=== PATIENT | female | born 1955 | race Caucasian/White ===

== ENCOUNTER 2024-07-18 09:08 | Inpatient (IN) | payer BC, MEDICARE, SELFPAY ==
[2024-06-28 13:44] LABS: Hematocrit 37.5 % (37.0-47.0); Hemoglobin 12.2 g/dL (12.0-16.0); Mean Corp Hgb Conc. 32.5 g/dL (33.0-37.0); Mean Corpuscular Hgb 28.4 pg (27.0-31.0); Mean Corpuscular Volume 87.2 fL (81.0-99.0); Mean Platelet Volume 9.6 fL (7.4-10.4); Platelet Count 251 10^3/uL (130-400); Red Cell Dist. Width 15.5 % (11.5-14.5); White Blood Cell Count 9.4 10^3/uL (4.8-10.8)
[2024-06-28 14:03] VITALS: BMI 39.9
[2024-06-28 14:08] LABS: Glycohemoglobin (HgbA1c) 6.9 % (4.0-5.6)
[2024-06-28 14:09] LABS: ALT (SGPT) 30 U/L (0-35); AST (SGOT) 39 U/L (14-36); Albumin 4.4 g/dl (3.5-5.0); Alkaline Phosphatase 104 U/L (38-126); Blood Urea Nitrogen 18 mg/dl (7-17); Calcium 9.9 mg/dl (8.4-10.2); Carbon Dioxide 21 mmol/L (22-30); Chloride 103 mmol/L (98-107); Estimated Creatinine Clearance 76 ml/min; Glucose 160 mg/dl (70-99); Potassium 4.5 mmol/L (3.5-5.1); Sodium 135 mmol/L (135-145); Total Bilirubin 0.5 mg/dl (0.2-1.3); Total Protein 7.4 g/dl (6.3-8.2); eGFR > 60.00
[2024-06-28 18:14] VITALS: BMI 39.9
[2024-07-18] VITALS (11 sets, daily range): BP systolic 101–157; BP diastolic 45–85
[2024-07-18 09:52] LABS: Glucose - Point of Care 166 mg/dl (70-99)
[2024-07-18] MEDS: NORMOSOL-R/PLASMALYTE-A 1000 IV ×2 (09:53→15:23)
[2024-07-18] MEDS: CELEBREX 200 MG PO (09:53)
[2024-07-18] MEDS: TYLENOL 1000 MG PO (09:53)
--- NOTE | 2024-07-18 10:29 | W.PN.UPDATE ---
Update Note
Progress Note Update
R TKA 07/18/24-d/c w/ VN PT
DVT ppx ASA
NIDDM
Obesity
-+ Novolog and Lantus coverage while inpatient due to hyperglycemic effect of surgery-resume Metformin
Cefadroxil ppx infection prevention
PVCs
HTN
-tele-continue BB
[id number] spirometry
--- NOTE | 2024-07-18 10:39 | W.DS.TRANS ---
DC Summary - [facility]
-
Discharge Instructions:
Discharge Diagnosis/Procedures R TKA 07/18/24-
Diet Diabetic, Carb Controlled
Activity With Walker
Driving Restrictions No driving
Bathing Restrictions OK to Shower
Other Services PT,VN
Instructions:
Stand-Alone Forms: Total Hip/Knee Replacement D/C
Changes to Home Medications: Yes
Discharge Medications:
DC Medications w/original date entered in [facility]
ergocalciferol (vitamin D2) 1,250 mcg (50,000 unit) capsule (Vitamin D2) 1,250 mcg PO SUTH 06/25/24
famotidine 40 mg tablet 40 mg PO QPM 06/25/24
meclizine 25 mg tablet 25 mg PO BID 06/25/24
metformin 500 mg tablet 500 mg PO 1800 06/25/24
metoprolol succinate 25 mg tablet,extended release 24 hr 25 mg PO DAILY 06/25/24
nortriptyline 10 mg capsule 20 mg PO QPM 06/25/24
nystatin 100,000 unit/mL oral suspension 10 ml PO TID 06/25/24
pravastatin 20 mg tablet 20 mg PO DAILY 06/25/24
valsartan 160 mg tablet 160 mg PO QPM 06/25/24
mupirocin 2 % topical ointment 1 applic intranasal BID #1 tube 06/28/24
Saccharomyces boulardii 250 mg capsule (Florastor) 250 mg PO BID #1 cap 07/18/24
acetaminophen 500 mg tablet 1,000 mg (2 x 500 mg) PO QID #0 tabs 07/18/24
aspirin 325 mg tablet 325 mg PO DAILY blood clot prevention #1 tab 07/18/24
cefadroxil 500 mg capsule 500 mg PO BID infection prevention #14 caps 07/18/24
docusate sodium 100 mg capsule (Colace) 100 mg PO BID stool softner #1 cap 07/18/24
gabapentin 300 mg capsule 300 mg PO HS sleep/pain #10 caps 07/18/24
magnesium hydroxide 400 mg/5 mL oral suspension (Milk of Magnesia) 30 ml PO HS PRN Constipation #1 mL 07/18/24
meloxicam 15 mg tablet 15 mg PO DAILY anti-inflammatory #14 tabs 07/18/24
ondansetron 4 mg disintegrating tablet 4 mg PO Q6H PRN n/v #20 tabs 07/18/24
oxycodone 5 mg tablet 5 mg PO Q6H PRN 1 tab moderate pain, 2 tabs severe pain #30 tabs 07/18/24
sennosides 8.6 mg tablet (Senokot) 17.2 mg (2 x 8.6 mg) PO BID laxative #2 tabs 07/18/24
Home Medication Changes
mupirocin 2 % topical ointment 1 applic intranasal BID #1 tube 06/28/24
Saccharomyces boulardii 250 mg capsule (Florastor) 250 mg PO BID #1 cap 07/18/24
acetaminophen 500 mg tablet 1,000 mg (2 x 500 mg) PO QID #0 tabs 07/18/24
aspirin 325 mg tablet 325 mg PO DAILY blood clot prevention #1 tab 07/18/24
cefadroxil 500 mg capsule 500 mg PO BID infection prevention #14 caps 07/18/24
docusate sodium 100 mg capsule (Colace) 100 mg PO BID stool softner #1 cap 07/18/24
gabapentin 300 mg capsule 300 mg PO HS sleep/pain #10 caps 07/18/24
magnesium hydroxide 400 mg/5 mL oral suspension (Milk of Magnesia) 30 ml PO HS PRN Constipation #1 mL 07/18/24
meloxicam 15 mg tablet 15 mg PO DAILY anti-inflammatory #14 tabs 07/18/24
ondansetron 4 mg disintegrating tablet 4 mg PO Q6H PRN n/v #20 tabs 07/18/24
oxycodone 5 mg tablet 5 mg PO Q6H PRN 1 tab moderate pain, 2 tabs severe pain #30 tabs 07/18/24
sennosides 8.6 mg tablet (Senokot) 17.2 mg (2 x 8.6 mg) PO BID laxative #2 tabs 07/18/24
Pending Results: No
[2024-07-18 11:32] LABS: Glucose - Point of Care 158 mg/dl (70-99)
[2024-07-18 14:24] LABS: Glucose - Point of Care 160 mg/dl (70-99)
[2024-07-18] MEDS: ROXICODONE 5 MG PO ×2 (15:09→23:08)
[2024-07-18] MEDS: NOVOLOG FLEXPEN-MODERATE RESISTANCE SC (15:44)
[2024-07-18] MEDS: TYLENOL PO (15:45)
--- NOTE | 2024-07-18 16:29 | PTCARENOTE ---
Received patient from PACU around 1520 via bed in stable condition. Decreased sensation to the right leg. Denies pain. Dressing to Right knee CDI. DTV. Patient oriented to room. Call plasencia in reach.
--- NOTE | 2024-07-18 17:19 | W.PN.UPDATE ---
Update Note
Progress Note Update
Patient doing well s/p R TKR. Has not been OOB as spinal wearing off. Comfortable. VSS. Pulm: nonlabored. CV: regular. RLE: Dressing CDI. Calf soft. Able to fully extend. Post op xray as expected. ASA for DVT prophylaxis. Consider
dexamethasone postop. Plan for discharge home tomorrow with outpatient PT on Monday.
[2024-07-18 17:21] LABS: Glucose - Point of Care 174 mg/dl (70-99)
[2024-07-18] MEDS: PRAVACHOL 20 MG PO (17:48)
[2024-07-18] MEDS: LANTUS 0.05 UNITS SC (17:48)
[2024-07-18] MEDS: TYLENOL 650 MG PO ×3 (17:49→23:08)
[2024-07-18] MEDS: PAMELOR 20 MG PO (17:50)
[2024-07-18] MEDS: ASPIRIN 325 MG PO (17:51)
[2024-07-18] MEDS: GLUCOPHAGE 500 MG PO (17:51)
[2024-07-18] MEDS: NOVOLOG FLEXPEN-MODERATE RESISTANCE 1 UNITS SC (17:52)
[2024-07-18] MEDS: DIOVAN 80 MG PO (17:53)
[2024-07-18] MEDS: ANTIVERT 25 MG PO (19:45)
[2024-07-18] MEDS: ULTRAM 25 MG PO (19:45)
[2024-07-18] MEDS: NEURONTIN 300 MG PO (19:45)
[2024-07-18] MEDS: BACTROBAN 2% OINTMENT 1 APPLIC NASAL (19:45)
[2024-07-18] MEDS: ANCEF 5 IV (19:45)
[2024-07-18] MEDS: SENOKOT 17.2 MG PO (19:45)
[2024-07-18] MEDS: COLACE 100 MG PO (19:45)
[2024-07-18] MEDS: TORADOL 15 MG IV (19:45)
[2024-07-18 21:55] LABS: Glucose - Point of Care 242 mg/dl (70-99)
[2024-07-19] MEDS: ANCEF 5 IV (03:15)
[2024-07-19] MEDS: TYLENOL 650 MG PO ×2 (03:17→12:00)
[2024-07-19 03:20] VITALS: BP 149/69
[2024-07-19] MEDS: ROXICODONE 5 MG PO (03:35)
[2024-07-19 07:18] VITALS: BP 154/67
--- NOTE | 2024-07-19 07:20 | W.PN.ORTHO ---
Today's Communication / Plan
-
discharge home today if stable
Assessment
.
Distal Motor Intact: Yes
Dressing:
Clean, dry and intact.
Assessment:
Doing well s/p R TKR
Plan
.
Surgery / Date: 07/18/2024
DVT Prophylaxis: Aspirin
Activity:
Out of bed.
PT/OT
Discharge Plan: Home w/ VN
Discharge Information:
Plan for discharge home today with Home PT and Visiting Nurse
Subjective
.
.:
Patient resting comfortably. OOB last night. Doing well S/P R TKR
Vital Signs and Labs
.
Vital Signs and Labs:
Lab Results
06/28/24 13:28
06/28/24 13:28
Temp Pulse Resp BP Pulse Ox
97.8 F 72 18 149/69 100
07/19/24 03:20 07/19/24 03:20 07/19/24 03:20 07/19/24 03:20 07/19/24 03:20
Non-invasive Hgb result: 14.8
Physical Exam
-
RLE: Dressing CDI. Calf soft. Able to fully extend. NVI distally.
Pulm: nonlabored
CV: regular
[2024-07-19 07:37] LABS: Glucose - Point of Care 177 mg/dl (70-99)
[2024-07-19] MEDS: NOVOLOG FLEXPEN-MODERATE RESISTANCE 1 UNITS SC (08:40)
[2024-07-19] MEDS: LANTUS 0.05 UNITS SC (08:40)
[2024-07-19] MEDS: TOPROL XL 25 MG PO (08:40)
[2024-07-19] MEDS: MOBIC 15 MG PO (08:41)
[2024-07-19] MEDS: PRAVACHOL 20 MG PO (08:41)
[2024-07-19] MEDS: NEURONTIN 300 MG PO (08:42)
[2024-07-19] MEDS: ASPIRIN 325 MG PO (08:42)
[2024-07-19] MEDS: ANTIVERT 25 MG PO (08:43)
[2024-07-19] MEDS: TORADOL 15 MG IV (08:43)
[2024-07-19] MEDS: ULTRAM 25 MG PO (08:43)
[2024-07-19] MEDS: COLACE 100 MG PO (08:45)
[2024-07-19] MEDS: TYLENOL PO (08:45)
[2024-07-19] MEDS: SENOKOT 17.2 MG PO (08:47)
[2024-07-19] MEDS: BACTROBAN 2% OINTMENT 1 APPLIC NASAL (08:47)
[2024-07-19 09:29] VITALS: BP 149/72; PULSE 75
[2024-07-19] MEDS: ROXICODONE 10 MG PO (09:35)
[2024-07-19 10:21] VITALS: BP 154/81; PULSE 83; O2SAT 100
--- NOTE | 2024-07-19 11:00 | CM ---
Addendum entered by Meeta Davenport RN 07/19/24 13:03:
[facility] has not responded to referral inquiry. CM referred patient to [facility]. Awaiting acceptance.
Addendum entered by Meeta Davenport RN 07/19/24 11:27:
[facility] is unable to accept due to staffing. CM referred patient to [facility]. Pending acceptance.
Original Note:
CM reviewed medical records. Patient confirmed choice of [facility]. CM sent referral via [facility]. Patient has a walker and can. She has PT set up at [facility] on 07/26.
PLAN: home with [facility] home care
[2024-07-19 11:13] VITALS: BP 144/70
--- NOTE | 2024-07-19 11:18 | W.PN.ORTHO ---
Today's Communication / Plan
-
d/c
Assessment
.
Distal Motor Intact: Yes
Dressing:
Clean, dry and intact.
Assessment:
NIDDM
Obesity
-+ Novolog and Lantus coverage while inpatient due to hyperglycemic effect of surgery-resume Metformin-sugars stable
Cefadroxil ppx infection prevention
PVCs
HTN
-stable on tele-continue BB
[id number] spirometry-O2 sats stable on RA
Plan
.
Surgery / Date: R TKA 07/18/24
DVT Prophylaxis: Aspirin
Activity:
Out of bed.
PT/OT
Discharge Plan: Home w/ VN
Subjective
.
.:
Patient resting comfortably.
Vital Signs and Labs
.
Vital Signs and Labs:
Lab Results
06/28/24 13:28
06/28/24 13:28
Temp Pulse Resp BP Pulse Ox
97.6 F 72 16 154/67 100
07/19/24 07:18 07/19/24 07:18 07/19/24 07:18 07/19/24 07:18 07/19/24 07:18
Non-invasive Hgb result: 14.8
Physical Exam
-
HEENT: No pallor, cyanosis, or jaundice. Throat clear.
NECK: Supple. No JVD.
RESPIRATORY: mild crackles at bases
CVS: S1, S2 normal. RRR.� No murmur, rub or gallop.
ABDOMEN: Soft, non-tender. No distension. BS+/normal.
EXTREMITIES: strength equal, no calf pain with palpation
[employer]: AOx3. No focal deficits. pre billing specialist grossly intact
[2024-07-19 11:52] LABS: Glucose - Point of Care 164 mg/dl (70-99)
[2024-07-19] MEDS: LASIX 20 MG IV (11:59)
[2024-07-19] MEDS: NOVOLOG FLEXPEN-MODERATE RESISTANCE SC ×2 (12:00→12:02)
--- NOTE | 2024-07-19 15:13 | CM ---
Addendum entered by Meeta Davenport RN 07/19/24 15:53:
Patient has been accepted by [facility]. CM called patient to update on agency.
PLAN: [facility] VN
Original Note:
CM left message for Supriya at [facility] to confirm that patient has been accept. CM awaiting confirmation.
== END 2024-07-19 13:00 | disposition home health service (06) | DRG 470 ==
LOC: 2 SOUTH 09:08
PROVIDERS: ADMITTING PHYSICIAN Orthopaedic Surgery; FAMILY PHYSICIAN Family Medicine
PROC: 0SRC0J9 Replacement of Right Knee Joint with Synthetic Substitute, Cemented, Open Approach (ICD-10-PCS; 2024-07-18)
DX: M17.11 Unilateral primary osteoarthritis, right knee (principal); C85.90 Non-Hodgkin lymphoma, unspecified, unspecified site; B37.0 Candidal stomatitis; I10 Essential (primary) hypertension; E78.5 Hyperlipidemia, unspecified; I49.3 Ventricular premature depolarization; G47.33 Obstructive sleep apnea (adult) (pediatric); R06.09 Other forms of dyspnea; E11.9 Type 2 diabetes mellitus without complications; K21.9 Gastro-esophageal reflux disease without esophagitis; G43.909 Migraine, unspecified, not intractable, without status migrainosus; G62.0 Drug-induced polyneuropathy; T45.1X5A Adverse effect of antineoplastic and immunosuppressive drugs, initial encounter; H91.90 Unspecified hearing loss, unspecified ear; E66.9 Obesity, unspecified; R74.01 Elevation of levels of liver transaminase levels; Z60.2 Problems related to living alone; Z68.39 Body mass index [BMI] 39.0-39.9, adult; Z87.891 Personal history of nicotine dependence; Z86.0100 Personal history of colon polyps, unspecified; Z87.19 Personal history of other diseases of the digestive system; Z79.82 Long term (current) use of aspirin; Z79.1 Long term (current) use of non-steroidal anti-inflammatories (NSAID); Z91.199 Patient's noncompliance with other medical treatment and regimen due to unspecified reason; Z90.49 Acquired absence of other specified parts of digestive tract
CPT/HCPCS: 36415; 73560; 80053; 82962; 83036; 85027; 87070; 97110; 97116; 97166; 97530; 97535; C1713; C1776